=== PATIENT | female | born 1960 | race Asian ===

== ENCOUNTER 2017-01-03 21:51 | Emergency (ER) | payer BC ==
[2017-01-03] MEDS ORDERED: Adacel (T-DAP) 0.5 ML VIAL ONE (22:14)
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
[2017-01-03] MEDS ORDERED: Ibuprofen 100 MG/5 ML UDCUP ONE (23:06)
[2017-01-03] MEDS ORDERED: Albuterol Sulfate 1.25 MG/3 ML NEB ONE (23:06)
== END 2017-01-03 22:57 | disposition home or self-care (01) ==
LOC: MADERS 21:51
DX: S42.035A Nondisplaced fracture of lateral end of left clavicle, initial encounter for closed fracture (principal); S63.501A Unspecified sprain of right wrist, initial encounter; I10 Essential (primary) hypertension; Z79.899 Other long term (current) drug therapy; V89.2XXA Person injured in unspecified motor-vehicle accident, traffic, initial encounter
CPT/HCPCS: 71010; 90471; 90715; G0390